=== PATIENT | male | born 1990 | race African-American/Black ===

== ENCOUNTER 2016-12-04 01:44 | Emergency (ER) | payer OTHER ==
[~2016-12-04] VITALS: Ht 172.7 cm; Wt 75.8 kg
[~2016-12-04 01:44] MED LIST: SLEEP MEDS
[2016-12-04 02:25] LABS: HEMATOCRIT 37.6 % (38.0-50.0); MCH 28.6 PG (29.0-34.0); MCHC 34.3 G/DL (30.0-36.0); MCV 83.4 FL (86-99); MEAN PLAT.VOLUME 9.4 uM^3 (9.0-12.4); PLATELET COUNT 244 K/uL (156-360); RBC DIS.WIDTH-SD 41.5 % (39-53); RED BLOOD COUNT 4.51 M/uL (4.00-5.50); WHITE BLOOD COUNT 9.6 K/uL (4.1-10.2)
[2016-12-04 02:35] LABS: CHLORIDE 108 mEq/L (99-109); POTASSIUM 3.8 mEq/L (3.7-5.4); SODIUM 146 mEq/L (136-147)
[2016-12-04 02:36] LABS: GLUCOSE 101 mg/dL (70-99)
[2016-12-04 02:38] LABS: ANION GAP 14 MEQ/L (2-14)
[2016-12-04 02:40] LABS: GFR ESTIMATE (CALCULATED) > 59 mL/min/; SERUM ETHYL ALCOHOL 380 mg/dL
[2016-12-04 02:41] LABS: UREA NITROGEN (BUN) 17 mg/dL (9-23)
[2016-12-04 04:50] VITALS: BP 141/61
== END 2016-12-04 05:05 | disposition home or self-care (01) ==
LOC: EME → EDBD 01:44 → EME 05:05
PROVIDERS: Emergency Medicine
DX: F10.129 Alcohol abuse with intoxication, unspecified (principal); Y90.8 Blood alcohol level of 240 mg/100 ml or more; F17.200 Nicotine dependence, unspecified, uncomplicated
CPT/HCPCS: 70450; 80048; 85027; 99281; 99285; G0480

== ENCOUNTER 2017-04-07 00:51 | Emergency (ER) | payer OTHER ==
[~2017-04-07] VITALS: Ht 172.7 cm; Wt 86.0 kg
[2017-04-07 01:55] VITALS: BP 132/78
== END 2017-04-07 01:56 | disposition home or self-care (01) ==
LOC: EME → EDBD 00:51 → EME 01:56
DX: F10.129 Alcohol abuse with intoxication, unspecified (principal); F17.210 Nicotine dependence, cigarettes, uncomplicated
CPT/HCPCS: 99281; 99284

== ENCOUNTER 2017-12-15 14:23 | Emergency (ER) | payer OTHER ==
[~2017-12-15] VITALS: Ht 182.9 cm; Wt 97.5 kg
[2017-12-15 22:25] VITALS: BP 157/75
== END 2017-12-15 22:27 | disposition home or self-care (01) ==
LOC: EME 14:23
DX: F10.129 Alcohol abuse with intoxication, unspecified (principal); F15.90 Other stimulant use, unspecified, uncomplicated; Y90.8 Blood alcohol level of 240 mg/100 ml or more
CPT/HCPCS: 93005; 99281; 99285; G0480

== ENCOUNTER 2017-12-28 17:38 | Emergency (ER) | payer OTHER ==
[~2017-12-28] VITALS: Ht 172.7 cm; Wt 94.2 kg
[2017-12-28 18:13] LABS: APPEARANCE CLEAR ((CLEAR)); BILIRUBIN NEGATIVE; BLOOD NEGATIVE; COLOR COLORLESS ((YELLOW)); GLUCOSE (STRIP) NEGATIVE; KETONES NEGATIVE; LEUKOCYTES NEGATIVE; NITRITE NEGATIVE; PROTEIN (STRIP) NEGATIVE; SPECIFIC GRAVITY 1.003 (1.000-1.030); UCUL ADDED? NO; UROBILINOGEN 0.2 MG/DL (0.2-1.0)
[2017-12-28 18:23] LABS: AMPHETAMINE NEGATIVE (500 ng/mL); BARBITURATES NEGATIVE (200 ng/mL); BENZODIAZEPINES NEGATIVE (150 ng/mL); BUPRENORPHINE NEGATIVE (10 ng/mL); COCAINE NEGATIVE (150 ng/mL); METHADONE NEGATIVE (200 ng/mL); METHAMPHETAMINE NEGATIVE (500 ng/mL); OPIATES (MORPHINE) NEGATIVE (100 ng/mL); OXYCODONE NEGATIVE (100 ng/mL); PHENCYCLIDINE NEGATIVE (25 ng/mL); PROPOXYPHENE NEGATIVE (300 ng/mL); THC CANNABINOIDS NEGATIVE (50 ng/mL); TRICYCLIC ANTIDEPRESSANTS NEGATIVE (300 ng/mL)
[2017-12-28 18:37] LABS: HEMATOCRIT 43.8 % (38.0-50.0); MCH 28.5 PG (29.0-34.0); MCHC 34.2 G/DL (30.0-36.0); MCV 83.1 FL (86-99); PLATELET COUNT 311 K/uL (156-360); RBC DIS.WIDTH-CV 13.5 % (11.8-14.6); RBC DIS.WIDTH-SD 40.8 % (39-53); RED BLOOD COUNT 5.27 M/uL (4.00-5.50); WHITE BLOOD COUNT 9.1 K/uL (4.1-10.2)
[2017-12-28 18:47] LABS: ALBUMIN 4.7 g/dL (3.2-4.8); CHLORIDE 109 mEq/L (99-109); POTASSIUM 4.5 mEq/L (3.7-5.4); SODIUM 142 mEq/L (136-147)
[2017-12-28 18:50] LABS: GLUCOSE 89 mg/dL (70-99); TOTAL PROTEIN 8.9 g/dL (6.4-8.3)
[2017-12-28 18:52] LABS: TOTAL BILIRUBIN 0.2 mg/dL (0.0-1.0)
[2017-12-28 18:53] LABS: ALKALINE PHOSPHATASE 97 IU/L (3-129); SERUM ETHYL ALCOHOL 358 mg/dL
[2017-12-28 18:54] LABS: CREATININE 0.9 mg/dL (0.6-1.3); GFR ESTIMATE (CALCULATED) > 59 mL/min/ (58.99-99999)
[2017-12-28 18:55] LABS: AST (GOT) 49 IU/L (2-34); UREA NITROGEN (BUN) 12 mg/dL (9-23)
[2017-12-28 18:56] LABS: ALT (GPT) 45 IU/L (3-49)
[2017-12-28 18:57] LABS: LIPASE 93 U/L (1.0-51.0)
[2017-12-29 03:26] VITALS: BP 142/75
== END 2017-12-29 03:27 | disposition home or self-care (01) ==
LOC: EME 17:38
PROVIDERS: Emergency Medicine
DX: F10.129 Alcohol abuse with intoxication, unspecified (principal); V47.0XXA Car driver injured in collision with fixed or stationary object in nontraffic accident, initial encounter; Y90.8 Blood alcohol level of 240 mg/100 ml or more
CPT/HCPCS: 80053; 81003; 83690; 85027; 99281; 99284; G0480

== ENCOUNTER 2018-04-27 15:02 | Emergency (ER) | payer OTHER ==
[2018-04-27 15:42] LABS: HEMOGLOBIN 14.7 G/DL (12.5-16.6); MCH 28.5 PG (29.0-34.0); MCHC 34.2 G/DL (30.0-36.0); MCV 83.3 FL (86-99); PLATELET COUNT 258 K/uL (156-360); RBC DIS.WIDTH-CV 13.8 % (11.8-14.6); RBC DIS.WIDTH-SD 42.4 % (39-53); RED BLOOD COUNT 5.16 M/uL (4.00-5.50); WHITE BLOOD COUNT 11.1 K/uL (4.1-10.2)
[2018-04-27 16:18] LABS: APPEARANCE CLEAR ((CLEAR)); BILIRUBIN NEGATIVE; BLOOD SMALL; COLOR STRAW ((YELLOW)); GLUCOSE (STRIP) NEGATIVE; KETONES 5; LEUKOCYTES NEGATIVE; NITRITE NEGATIVE; PROTEIN (STRIP) NEGATIVE; SPECIFIC GRAVITY 1.008 (1.000-1.030); UROBILINOGEN 0.2 MG/DL (0.2-1.0)
[2018-04-27 16:22] LABS: BACTERIA NONE SEEN /HPF; EPITHELIAL CELLS RARE /HPF; HYALINE CASTS 0-5 /LPF; MUCUS TRACE /LPF; RED BLOOD CELLS 0-5 /HPF (0-5); WHITE BLOOD CELLS 0-5 /HPF (0-5)
[2018-04-27 16:28] LABS: AMPHETAMINE NEGATIVE (500 ng/mL); BARBITURATES NEGATIVE (200 ng/mL); BENZODIAZEPINES NEGATIVE (150 ng/mL); BUPRENORPHINE NEGATIVE (10 ng/mL); COCAINE NEGATIVE (150 ng/mL); METHADONE NEGATIVE (200 ng/mL); METHAMPHETAMINE NEGATIVE (500 ng/mL); OPIATES (MORPHINE) NEGATIVE (100 ng/mL); OXYCODONE NEGATIVE (100 ng/mL); PHENCYCLIDINE NEGATIVE (25 ng/mL); PROPOXYPHENE NEGATIVE (300 ng/mL); THC CANNABINOIDS NEGATIVE (50 ng/mL); TRICYCLIC ANTIDEPRESSANTS NEGATIVE (300 ng/mL)
[2018-04-27 16:42] LABS: CHLORIDE 101 mEq/L (99-109); POTASSIUM 3.9 mEq/L (3.7-5.4); SODIUM 138 mEq/L (136-147)
[2018-04-27 16:44] LABS: GLUCOSE 87 mg/dL (70-99)
[2018-04-27 16:47] LABS: SERUM ETHYL ALCOHOL 283 mg/dL
[2018-04-27 16:48] LABS: CREATININE 1.1 mg/dL (0.6-1.3); GFR ESTIMATE (CALCULATED) > 59 mL/min/ (58.99-99999)
[2018-04-27 16:49] LABS: UREA NITROGEN (BUN) 11 mg/dL (9-23)
[2018-04-27 16:51] LABS: ACETAMINOPHEN (TYLENOL) < 10 mcg/mL (10-30); SALICYLATE < 5.0 MG/DL (15-30)
[2018-04-27 16:57] LABS: TROP-I INTERPRETATION NEGATIVE; TROPONIN-I < 0.01 ng/mL (0.0-0.30)
[2018-04-27 23:02] VITALS: BP 125/68
== END 2018-04-27 23:02 | disposition home or self-care (01) ==
LOC: EME 15:02
PROVIDERS: Nurse Practitioner Family
DX: F10.129 Alcohol abuse with intoxication, unspecified (principal); Y90.8 Blood alcohol level of 240 mg/100 ml or more
CPT/HCPCS: 80048; 81003; 84484; 85027; 93005; 99281; 99285; G0480; J7030

== ENCOUNTER 2018-05-02 09:19 | Emergency (ER) | payer OTHER ==
[~2018-05-02] VITALS: Ht 172.7 cm; Wt 88.7 kg
[2018-05-02 09:52] LABS: HEMATOCRIT 39.9 % (38.0-50.0); HEMOGLOBIN 13.8 G/DL (12.5-16.6); MCH 28.5 PG (29.0-34.0); MCHC 34.6 G/DL (30.0-36.0); MCV 82.3 FL (86-99); PLATELET COUNT 233 K/uL (156-360); RBC DIS.WIDTH-CV 13.1 % (11.8-14.6); RBC DIS.WIDTH-SD 39.2 % (39-53); RED BLOOD COUNT 4.85 M/uL (4.00-5.50); WHITE BLOOD COUNT 7.4 K/uL (4.1-10.2)
[2018-05-02 10:03] LABS: CHLORIDE 101 mEq/L (99-109); POTASSIUM 3.3 mEq/L (3.7-5.4); SODIUM 139 mEq/L (136-147)
[2018-05-02 10:05] LABS: GLUCOSE 142 mg/dL (70-99)
[2018-05-02 10:08] LABS: SERUM ETHYL ALCOHOL < 10 mg/dL
[2018-05-02 10:09] LABS: CREATININE 1.1 mg/dL (0.6-1.3); GFR ESTIMATE (CALCULATED) > 59 mL/min/ (58.99-99999)
[2018-05-02 10:10] LABS: UREA NITROGEN (BUN) 11 mg/dL (9-23)
[2018-05-02 10:37] LABS: AMPHETAMINE NEGATIVE (500 ng/mL); BARBITURATES NEGATIVE (200 ng/mL); BENZODIAZEPINES NEGATIVE (150 ng/mL); BUPRENORPHINE NEGATIVE (10 ng/mL); COCAINE NEGATIVE (150 ng/mL); METHADONE NEGATIVE (200 ng/mL); METHAMPHETAMINE NEGATIVE (500 ng/mL); OPIATES (MORPHINE) PRESUMPTIVE POSITIVE (100 ng/mL); OXYCODONE NEGATIVE (100 ng/mL); PHENCYCLIDINE NEGATIVE (25 ng/mL); PROPOXYPHENE NEGATIVE (300 ng/mL); THC CANNABINOIDS NEGATIVE (50 ng/mL); TRICYCLIC ANTIDEPRESSANTS NEGATIVE (300 ng/mL)
[2018-05-02 12:43] VITALS: BP 139/82
[2018-05-03] MEDS ORDERED: K-DUR20 MEQ PO (15:14)
== END 2018-05-02 12:43 | disposition home or self-care (01) ==
LOC: EME 09:19
PROVIDERS: Emergency Medicine
DX: F32.9 Major depressive disorder, single episode, unspecified (principal); Z91.5 Personal history of self-harm; F41.9 Anxiety disorder, unspecified; F17.200 Nicotine dependence, unspecified, uncomplicated; Z88.6 Allergy status to analgesic agent
CPT/HCPCS: 80048; 84999; 85027; 90839; G0480

== ENCOUNTER 2018-05-03 09:06 | Emergency (ER) | payer OTHER ==
[~2018-05-03] VITALS: Ht 172.7 cm; Wt 88.7 kg
[2018-05-03 10:34] LABS: BASOPHIL (%) 0.2 % (0-1); EOSINOPHIL (%) 0.1 % (0-5); HEMATOCRIT 41.9 % (38.0-50.0); HEMOGLOBIN 14.5 G/DL (12.5-16.6); IMMATURE GRANULOCYTE (%) 0.5 % (0.0-0.7); LYMPHOCYTE (%) 10.2 % (15-42); LYMPHOCYTE COUNT 1.3 K/uL (1.0-2.8); MCH 28.4 PG (29.0-34.0); MCHC 34.6 G/DL (30.0-36.0); MONOCYTE (%) 7.2 % (3-12); MONOCYTE COUNT 0.9 K/uL (0-0.8); NEUTROPHIL (%) 81.8 % (45-76); NEUTROPHIL COUNT 10.6 K/uL (1.8-6.4); PLATELET COUNT 244 K/uL (156-360); RBC DIS.WIDTH-CV 13.2 % (11.8-14.6); RBC DIS.WIDTH-SD 39.6 % (39-53); RED BLOOD COUNT 5.11 M/uL (4.00-5.50)
[2018-05-03 10:41] LABS: CHLORIDE 103 mEq/L (99-109); SODIUM 143 mEq/L (136-147)
[2018-05-03 10:43] LABS: GLUCOSE 119 mg/dL (70-99)
[2018-05-03 10:46] LABS: SERUM ETHYL ALCOHOL < 10 mg/dL
[2018-05-03 10:47] LABS: CREATININE 1.4 mg/dL (0.6-1.3); GFR ESTIMATE (CALCULATED) > 59 mL/min/ (58.99-99999)
[2018-05-03 10:48] LABS: UREA NITROGEN (BUN) 11 mg/dL (9-23)
[2018-05-03] MEDS ORDERED: K-DUR20 MEQ PO (15:14)
[2018-05-03 15:57] VITALS: BP 183/90
== END 2018-05-03 15:58 | disposition home or self-care (01) ==
LOC: EME 09:06
PROVIDERS: Emergency Medicine
DX: F32.9 Major depressive disorder, single episode, unspecified (principal); E87.6 Hypokalemia; F19.129 Other psychoactive substance abuse with intoxication, unspecified; Z91.5 Personal history of self-harm; F17.200 Nicotine dependence, unspecified, uncomplicated
CPT/HCPCS: 80048; 81003; 85025; 90837; 99281; 99285; G0480

== ENCOUNTER 2018-05-03 19:10 | Inpatient (IN) | payer OTHER ==
[~2018-05-03] VITALS: Ht 172.7 cm; Wt 88.7 kg
[~2018-05-03 19:10] MED LIST changes: +K-DUR20 MEQ PO
[2018-05-03 21:52] LABS: BASOPHIL (%) 0.2 % (0-1); EOSINOPHIL (%) 0 % (0-5); HEMATOCRIT 41.5 % (38.0-50.0); HEMOGLOBIN 14.5 G/DL (12.5-16.6); IMMATURE GRANULOCYTE (%) 0.4 % (0.0-0.7); LYMPHOCYTE (%) 16.7 % (15-42); LYMPHOCYTE COUNT 2.2 K/uL (1.0-2.8); MCH 28.9 PG (29.0-34.0); MCHC 34.9 G/DL (30.0-36.0); MCV 82.7 FL (86-99); MONOCYTE (%) 6.9 % (3-12); MONOCYTE COUNT 0.9 K/uL (0-0.8); NEUTROPHIL (%) 75.8 % (45-76); NEUTROPHIL COUNT 9.9 K/uL (1.8-6.4); PLATELET COUNT 226 K/uL (156-360); RBC DIS.WIDTH-CV 13.5 % (11.8-14.6); RBC DIS.WIDTH-SD 40.5 % (39-53); RED BLOOD COUNT 5.02 M/uL (4.00-5.50)
[2018-05-03 22:00] LABS: CHLORIDE 103 mEq/L (99-109); POTASSIUM 3.5 mEq/L (3.7-5.4); SODIUM 139 mEq/L (136-147)
[2018-05-03 22:02] LABS: GLUCOSE 112 mg/dL (70-99)
[2018-05-03 22:05] LABS: SERUM ETHYL ALCOHOL < 10 mg/dL
[2018-05-03 22:06] LABS: CREATININE 1.4 mg/dL (0.6-1.3); GFR ESTIMATE (CALCULATED) > 59 mL/min/ (58.99-99999)
[2018-05-03 22:07] LABS: UREA NITROGEN (BUN) 10 mg/dL (9-23)
[2018-05-04 01:20] LABS: AMPHETAMINE NEGATIVE (500 ng/mL); BARBITURATES NEGATIVE (200 ng/mL); BENZODIAZEPINES PRESUMPTIVE POSITIVE (150 ng/mL); COCAINE NEGATIVE (150 ng/mL); METHADONE NEGATIVE (200 ng/mL); METHAMPHETAMINE NEGATIVE (500 ng/mL); OPIATES (MORPHINE) PRESUMPTIVE POSITIVE (100 ng/mL); OXYCODONE NEGATIVE (100 ng/mL); PHENCYCLIDINE NEGATIVE (25 ng/mL); THC CANNABINOIDS NEGATIVE (50 ng/mL); TRICYCLIC ANTIDEPRESSANTS NEGATIVE (300 ng/mL)
[2018-05-04 01:21] LABS: BUPRENORPHINE NEGATIVE (10 ng/mL); PROPOXYPHENE PRESUMPTIVE POSITIVE (300 ng/mL)
[2018-05-04 02:00] LABS: BENZODIAZEPINES, URINE SCREEN POSITIVE (200 ng/mL)
[2018-05-04 09:10] VITALS: BP 135/111
[2018-05-04 09:12] VITALS: BP 135/111
[2018-05-04 16:34] VITALS: BP 182/82
[2018-05-05 07:59] VITALS: BP 151/82
[2018-05-05 16:14] VITALS: BP 144/79
[2018-05-06 07:44] VITALS: BP 138/68
[2018-05-06 16:08] VITALS: BP 134/73
[2018-05-07 07:50] VITALS: BP 155/86
[2018-05-07 16:42] VITALS: BP 147/97
[2018-05-08 07:25] VITALS: BP 145/72
[2018-05-08] MEDS ORDERED: SEROQUEL300 MG PO (10:02)
[2018-05-08] MEDS ORDERED: FLUOXETINE HCL20 MG PO (10:02)
== END 2018-05-08 10:44 | disposition home or self-care (01) | DRG 897 ==
LOC: EME 19:10 → 1WEST 05-04 06:21 → EDOF 05-04 06:21 → 1WEST 05-04 09:05 → ENRESERV 05-04 09:05 → 1WEST 05-08 10:44
PROVIDERS: Emergency Medicine
DX: F19.959 Other psychoactive substance use, unspecified with psychoactive substance-induced psychotic disorder, unspecified (principal); F43.10 Post-traumatic stress disorder, unspecified; R45.851 Suicidal ideations; Z91.14 Patient's other noncompliance with medication regimen; F10.20 Alcohol dependence, uncomplicated; F11.10 Opioid abuse, uncomplicated; F13.10 Sedative, hypnotic or anxiolytic abuse, uncomplicated; F17.200 Nicotine dependence, unspecified, uncomplicated; F12.90 Cannabis use, unspecified, uncomplicated
CPT/HCPCS: 80048 91; 84999; 85025 91; 90837; 97150 GO; 97165 GO; 99281; 99285; G0480; J1630; J2060; Q0177